=== PATIENT | male | born 1950 | race Caucasian/White ===

== ENCOUNTER 2017-09-28 13:48 | Emergency (ER) | payer MEDICARE, OTHER ==
[~2017-09-28] VITALS: Ht 167.6 cm; Wt 70.5 kg
[~2017-09-28 13:48] MED LIST: ACET-2158 PO; AMLO-145 PO; BEN50 PO; BICA50TA4 PO; BISA-57 PO; DOCU-144 PO; HYDR-906 PO; PRED20TA PO; TAMS-14 PO
[2017-09-28] MEDS ORDERED: SODIUM CHLORIDE 0.9% 1L BAG IV* STA (14:09)
[2017-09-28 14:11] VITALS: Ht 167.6 cm; Wt 70.5 kg
--- NOTE | 2017-09-28 14:33 | RADRPT ---
PROCEDURE: Chest x-ray CLINICAL INDICATION: Shortness of breath TECHNIQUE: Chest single view COMPARISON: 07/18/2014 FINDINGS: There is interval placement right IJ Port-A-Cath with tip in the SVC. The heart is normal in size. The pulmonary vessels are normal in caliber. There is subtle ground-glass density in the left perih ilar location. This may be infectious or neoplastic in etiology. Recommend further evaluation with C T appear there is widening of the superior mediastinum with mild deviation of the trachea to the rig ht. This may suggest adenopathy. Lungs otherwise clear. Costophrenic angles sharp. Bony thorax is un remarkable P IMPRESSION: 1. New ground-glass left perihilar density. This may be infectious or neoplastic in etiology. 2. Questionable widening of the superior mediastinum.. 3. Interval placement right IJ Port-A-Cath. 4. Given the constellation of findings, CT scan of the chest is recommended for further evaluation RPTAT: .Emile Ku MD, MD Date Time Electronically viewed and signed by .Emile Ku MD, on 09/28/2017 14:33 .W/
[2017-09-28 14:45] LABS: ABNORMAL IP MESSAGE 1; BASOPHILS % 0.3 % (0.0-2.0); EOSINOPHILS % 0.3 % (0.0-7.0); HEMATOCRIT 26.1 % (42.0-52.0); HEMOGLOBIN 8.6 g/dl (14.0-18.0); LYMPHOCYTES # 0.4 10^3/ul (0.8-2.9); LYMPHOCYTES % 6.1 % (15.0-51.0); MEAN CORPUSCULAR HEMOGLOBIN 27.3 pg (29.0-33.0); MEAN CORPUSCULAR VOLUME 82.9 fl (82.0-101.0); MEAN PLATELET VOLUME 8.1 fl (7.4-10.4); MONOCYTE # 0.6 10^3/ul (0.3-0.9); MONOCYTES % 7.9 % (0.0-11.0); NEUTROPHIL # 5.8 10^3/ul (1.6-7.5); NEUTROPHILS % 83.7 % (39.0-77.0); PLATELET COUNT 270 10^3/UL (140-415); POSITIVE DIFF @See below; RED BLOOD COUNT 3.15 10^6/ul (4.70-6.10); RED CELL DISTRIBUTION WIDTH 15.6 % (11.5-14.5); WHITE BLOOD COUNT 6.9 10^3/ul (4.8-10.8)
[2017-09-28] MEDS ORDERED: FENTAnyl 50 MCG/ML VIAL IV ONE ×2 (15:00→16:30)
[2017-09-28] MEDS ORDERED: IOHEXOL 100 ML ONE (15:01)
[2017-09-28] MEDS ORDERED: SOD CHLORIDE 0.9% 100 ML ONE (15:01)
[2017-09-28] MEDS ORDERED: IOHEXOL 350MG/ML 50 ML BTL ONE (15:01)
[2017-09-28 15:03] LABS: INR 1.17; PARTIAL THROMBOPLASTIN TIME 38.8 Sec (25.0-35.0); PT RATIO 1.2
[2017-09-28 15:06] LABS: ALANINE AMINOTRANSFERASE 66 IU/L (13-69); ALBUMIN 3.2 g/dl (3.3-4.9); ALBUMIN/GLOBULIN RATIO 0.88; ALKALINE PHOSPHATASE 291 IU/L (42-121); ANION GAP 14 (8-16); ASPARTATE AMINO TRANSFERASE 61 IU/L (15-46); BILIRUBIN,INDIRECT 0.2 mg/dl (0-1.1); BILIRUBIN,TOTAL 0.2 mg/dl (0.2-1.3); BLOOD UREA NITROGEN 12 mg/dl (7-20); CALCIUM 8.2 mg/dl (8.4-10.2); CARBON DIOXIDE 28 mmol/L (21-31); CHLORIDE 92 mmol/L (97-110); GLUCOSE 178 mg/dl (70-220); POTASSIUM 4.6 mmol/L (3.5-5.1); SODIUM 129 mmol/L (135-144); TOTAL PROTEIN 6.8 g/dl (6.1-8.1)
[2017-09-28 15:20] LABS: TROPONIN-I < 0.012 ng/ml (0.00-0.12)
--- NOTE | 2017-09-28 15:57 | RADRPT ---
PROCEDURE: CT angiogram of the chest and abdomen CLINICAL INDICATION: Chest pain TECHNIQUE: CT angiogram of the chest and abdomen. The patient was scanned after administration of 120 cc of Omnipaque 350 intravenous contrast. Oral contrast was not administered. 3-D, sagittal a nd coronal reformatted images were obtained from the axial source images. DICOM images are available . One or more of the following post reduction techniques were used: - Automated exposure control. - Adjustment of the mA and/or Kv according to patient's size. - Use of iterative reconstruction technique DLP 887.89 mGycm. CTDI vol 15.28-35.21 mGy COMPARISON: CT 03/26/2014 FINDINGS: CTA chest: The aorta is normal without aneurysmal dilatation or dissection. No filling defects are seen in the pulmonary arteries to suggest pulmonary embolus. The great vessels are unremarkable. CTA abdomen: The abdominal aorta is normal in caliber with no evidence of aneurysm or dissection. Mild atheroscle rosis. The celiac artery, SMA and AIMEE are widely patent. There paired right and single left renal arteries with no focal stenosis. CT chest: Scattered nodules throughout both lungs measuring up to 8 mm bilaterally. No consolidation. Bilateral hilar lymphadenopathy. Coronary atherosclerosis. Enlarged heterogeneous thyroid, left lower lobe greater than right. Diffuse sclerotic lesions throughout the osseous structures. CT abdomen: The lung bases are clear. 1 cm subcapsular hypodense lesion in the lateral right lobe. 1.6 cm hypodense lesion at the yonatan he patis. The spleen, adrenal glands, pancreas, and kidneys are normal. Mild perinephric fat stranding. Gallbladder is surgically absent. There is no ascites or retroperitoneal adenopathy. There is no bowel obstruction. Descending colon diverticulosis. Diffuse sclerotic lesions throughout the osseous structures. RPTAT: KK IMPRESSION: No evidence of abdominal aortic aneurysm or dissection. No pulmonary embolus. Bilateral pulmonary nodules measuring up to 8 mm. Hilar lymphadenopathy. Multiple hypodense liver le sions. Diffusely scattered sclerotic lesions throughout the skeleton. Findings concerning for metast atic disease secondary to known prostate cancer. Goiterous thyroid. Diverticulosis. Elsi Cortez Physician Date Time Electronically viewed and signed by Physician Avani on 09/28/2017 15:56 ME/
--- NOTE | 2017-09-28 16:10 | ERD ---
ER Documentation Chief Complaint Chief Complaint BIB R7 COUGH X8 DAYS, CP X4 DAYS, GIVEN ABX BY PMD [id number], 162ASPIRIN HPI This is a 67-year-old male with a history of prostate cancer with disseminated disease which is confirmed on PET scan from last week who presents to the emergency room after being brought in by ambulance for evaluation of chest pain , dry cough for 8 days and generalized weakness. This patient is seen by an oncologist Dr. huntley. The patient denies any aggravating or relieving factors for his symptoms. He describes his cough is a dry cough with no blood and denies any fevers or chills associated with his symptoms. ROS All systems reviewed and are negative except as per history of present illness. Medications Home Meds Active Scripts Hydrocodone/Acetaminophen ([place] 5-325 Tablet) 1 Each Tablet, 1 TAB PO Q6H Y for PAIN, #7 TAB Prov:MIGNON GUEVARA PA-C 09/23/16 Prednisone* (Prednisone*) 20 Mg Tab, 40 MG PO DAILY for 4 Days, TAB Prov:JENNIFER ZULETA NP 09/01/15 Diphenhydramine Hcl* (Benadryl*) 50 Mg Cap, 50 MG PO Q6 Y for ITCHING, #30 Prov:JENNIFER ZULETA NP 09/01/15 Tamsulosin Hcl* (Flomax*) 0.4 Mg Capsr, 0.4 MG PO HS, #30 BOTTLE Prov:KAYY LEON MD 07/22/14 Docusate Sodium* (Colace*) 100 Mg Cap, 100 MG PO Q12H Y for CONSTIPATION, #60 BOTTLE Prov:KAYY LEON MD 07/22/14 Bisacodyl* (Dulcolax*) 5 Mg Tabec, 5 MG PO DAILY Y for CONSTIPATION, #30 BOTTLE Prov:KAYY LEON MD 07/22/14 Bicalutamide* (Bicalutamide*) 50 Mg Tab, 50 MG PO DAILY, #30 BOTTLE Prov:KAYY LEON MD 07/22/14 Acetaminophen (TYLENOL 325 MG TAB) 325 Mg Tab, 650 MG PO Q6H Y for PAIN LEVEL 1- 3 OR FEVER, #60 TAB Prov:KAYY LEON MD 07/22/14 Reported Medications Amlodipine Besylate* (Amlodipine Besylate*) 5 Mg Tablet, 5 MG PO DAILY for ELEVATED BLOOD PRESSURE 02/16/14 Allergies Allergies: Coded Allergies: morphine (Verified Allergy, Unknown, 01/23/15) PMhx/Soc History of Surgery: Yes (LAP EVANG[facility] 3 MONTHS AGO) Anesthesia Reaction: No Hx Neurological Disorder: No Hx Respiratory Disorders: No Hx Cardiac Disorders: No Hx Psychiatric Problems: No Hx Miscellaneous Medical Probl: Yes (GALLSTONES, Prostate CA, BONE CA ) Hx Alcohol Use: No Hx Substance Use: No Hx Tobacco Use: No Smoking Status: Never smoker Physical Exam Vitals Vital Signs Date Time Temp Pulse Resp B/P Pulse Ox O2 Delivery O2 Flow Rate FiO2 09/28/17 14:11 98.3 104 22 126/91 99 Physical Exam INITIAL VITAL SIGNS: Reviewed by me GENERAL: The patient is well developed and appropriate for usual state of health in no apparent distress HEENT: Dry mucous membranes, pupils equal, round, and reactive to light. EOMI. There is no scleral icterus. NECK: C-spine is soft and supple, there is no meningismus. There is no cervical lymphadenopathy. LUNGS: Clear to auscultation bilaterally. There are no rales, wheezes or rhonchi. HEART: Tachycardic, no murmurs, clicks, rubs or gallops. ABDOMEN: Soft, non-tender, non-distended. There are bowel sounds in all four quadrants. No rebound or guarding. EXTREMITIES: There is no peripheral cyanosis or edema. No focal swelling or erythema. NEUROLOGICAL: The patient moves all four extremities with 5/5 strength. Cranial nerves II - XII are intact. Normal gait. Alert and oriented SKIN: Tunneled right-sided IJ, there is no apparent rash or petechiae. HEME/LYMPHATIC: There is no evidence of excessive bruising or lymphedema. PSYCHIATRIC: The patient does not appear anxious or depressed. Result Diagram: 09/28/17 1410 09/28/17 1410 Results 24 hrs Laboratory Tests Test 09/28/17 14:10 09/28/17 14:19 White Blood Count 6.910^3/ul Red Blood Count 3.1510^6/ul Hemoglobin 8.6g/dl Hematocrit 26.1% Mean Corpuscular Volume 82.9fl Mean Corpuscular Hemoglobin 27.3pg Mean Corpuscular Hemoglobin Concent 33.0g/dl Red Cell Distribution Width 15.6% Platelet Count 50548^3/UL Mean Platelet Volume 8.1fl Neutrophils % 83.7% Lymphocytes % 6.1% Monocytes % 7.9% Eosinophils % 0.3% Basophils % 0.3% Nucleated Red Blood Cells % 0.0/100WBC Neutrophils # 5.810^3/ul Lymphocytes # 0.410^3/ul Monocytes # 0.610^3/ul Eosinophils # 0.010^3/ul Basophils # 0.010^3/ul Nucleated Red Blood Cells # 0.010^3/ul Prothrombin Time 15.0Sec Prothrombin Time Ratio 1.2 INR International Normalized Ratio 1.17 Activated Partial Thromboplast Time 38.8Sec Sodium Level 129mmol/L Potassium Level 4.6mmol/L Chloride Level 92mmol/L Carbon Dioxide Level 28mmol/L Anion Gap 14 Blood Urea Nitrogen 12mg/dl Creatinine 0.70mg/dl Glucose Level 178mg/dl Lactic Acid Level 1.9mmol/L Calcium Level 8.2mg/dl Total Bilirubin 0.2mg/dl Direct Bilirubin 0.00mg/dl Indirect Bilirubin 0.2mg/dl Aspartate Amino Transf (AST/SGOT) 61IU/L Alanine Aminotransferase (ALT/SGPT) 66IU/L Alkaline Phosphatase 291IU/L Troponin I < 0.012ng/ml Total Protein 6.8g/dl Albumin 3.2g/dl Globulin 3.60g/dl Albumin/Globulin Ratio 0.88 Bedside Glucose 162mg/dL Current Medications Medications (Trade) Dose Ordered Sig/Nancy Route PRN Reason Start Time Stop Time Status Last Admin Dose Admin Sodium Chloride (NS) 2,500 ml BOLUS OVER 2 HOURS STAT IV* 09/28/17 14:09 09/28/17 14:10 DC 09/28/17 14:32 Fentanyl (Sublimaze) 25 mcg ONCE ONCE IV 09/28/17 15:00 09/28/17 15:01 DC 09/28/17 14:53 IV Flush 10 ml 10 ml STK-MED ONCE .ROUTE 09/28/17 15:01 09/28/17 15:02 DC 09/28/17 15:37 Sodium Chloride 100 ml @ ud STK-MED ONCE .ROUTE 09/28/17 15:01 11/15/17 15:02 DC 09/28/17 15:38 Iohexol (Omnipaque) 100 ml @ ud STK-MED ONCE .ROUTE 09/28/17 15:01 09/28/17 15:02 DC 09/28/17 15:39 Iohexol (Omnipaque 350mg/ ml) 50 ml STK-MED ONCE .ROUTE 09/28/17 15:01 09/28/17 15:02 DC 09/28/17 15:40 Fentanyl (Sublimaze) 25 mcg ONCE ONCE IV 09/28/17 16:30 09/28/17 16:31 UNV Procedures/MDM EKG: Rate/Rhythm: Sinus tachycardia QRS, ST, T-waves: [No changes consistent w/ acute ischemia] Impression: [No evidence of ischemia or arrhythmia] EKG: #2 Rate/Rhythm: [Normal Sinus Rhythm] QRS, ST, T-waves: [No changes consistent w/ acute ischemia] Impression: [No evidence of ischemia or arrhythmia] Chest X-ray 1V Interpreted by me: 1. New ground-glass left perihilar density. This may be infectious or neoplastic in etiology. 2. Questionable widening of the superior mediastinum.. 3. Interval placement right IJ Port-A-Cath. 4. Given the constellation of findings, CT scan of the chest is recommended for further evaluation CTA chest: No evidence of abdominal aortic aneurysm or dissection. No pulmonary embolus. Bilateral pulmonary nodules measuring up to 8 mm. Hilar lymphadenopathy. Multiple hypodense liver lesions. Diffusely scattered sclerotic lesions throughout the skeleton. Findings concerning for metastatic disease secondary to known prostate cancer. Goiterous thyroid. Diverticulosis. This is a 67-year-old male who presents to the emergency room for evaluation of cough, chest pain and mild shortness of breath. When I evaluated this patient he was mildly tachycardic however he is not hypotensive and he was not hypoxic. The patient does have a history of prostate cancer with metastases to the bone and lung. He is being followed by oncologist Dr. rios. This patient underwent a septic workup in the emergency room which does not show leukocytosis , he has no lactic acidosis. Chest x-ray does show what appears to be groundglass opacities however a CT a of the chest was obtained to rule out aortic dissection or infiltrate or pulmonary embolism. CTA does not reveal new infiltrate or pulmonary embolism or dissection in the groundglass opacities likely represent new pulmonary metastases from his primary prostate cancer. His hemoglobin is 8.6 and his baseline hemoglobin is around 11. I have contacted this patient's oncologist yuko and have reviewed the case with her. She states the patient's drop in hemoglobin is likely related to his uncontrolled disease. The patient is hemodynamically stable with a blood pressure of 121/74. His heart rate is now 88 bpm after IV fluid administration. The patient's family members and the patient are comfortable with the plan of discharge at this time with follow-up with of the son. She is okay with her plan of care and the patient was advised he can return to the ER any point for reevaluation if he is uncomfortable about the patient patient's family verbalized understanding and are okay to plan of care. Departure Diagnosis: Primary Impression: Prostate cancer metastatic to lung Additional Impressions: Hyponatremia Normocytic anemia Cough Condition: Stable MARYANN LUCIA DO Sep 28, 2017 16:10
[2017-09-28] MEDS ORDERED: HYDR-906 PO (16:18)
[2017-09-28 16:39] VITALS: BP 137/83; PULSE 93; RESP 18; TEMP 98.2
== END 2017-09-28 16:42 | disposition home or self-care (01) ==
LOC: E/R 13:48
DX: C61 Malignant neoplasm of prostate (principal); R40.2252 Coma scale, best verbal response, oriented, at arrival to emergency department; C78.00 Secondary malignant neoplasm of unspecified lung; E87.1 Hypo-osmolality and hyponatremia; D64.9 Anemia, unspecified; R40.2142 Coma scale, eyes open, spontaneous, at arrival to emergency department; R40.2362 Coma scale, best motor response, obeys commands, at arrival to emergency department; R07.9 Chest pain, unspecified; Z85.830 Personal history of malignant neoplasm of bone
CPT/HCPCS: 36415; 71010; 71275; 75635; 80053; 82962; 83605; 84484; 85025; 85610; 85730; 86850; 86900; 86901; 87040; 93005; 96374; 96375; 99285; J3010; J7030; Q9967

== ENCOUNTER 2018-02-13 13:47 | Emergency (ER) | END 2018-02-13 22:30 | disposition home or self-care (01) ==

== ENCOUNTER 2018-03-16 20:42 | Inpatient (IN) | END 2018-03-26 13:34 | disposition hospice, home (50) | DRG 722 ==